=== PATIENT | female | born 1995 | race Caucasian/White ===

== ENCOUNTER 2025-05-26 23:59 | Emergency (ER) | payer SELFPAY ==
[~2025-05-26] VITALS: Ht 172.7 cm; Wt 72.6 kg
[2025-05-27 01:18] LABS: BASOPHILS % 0.4 % (0.0-1.0); EOSINOPHILS % 0.0 % (0.0-6.0); LYMPHOCYTES % 12.7 % (18.0-39.1); MONOCYTES % 2.7 % (4.4-11.3); NEUTROPHILS % 83.8 % (38.7-80.0); RED CELL DISTRIBUTION WIDTH 12.8 % (11.7-14.4)
[2025-05-27 01:31] LABS: EST GLOMERULAR FILTRATION RATE 91.0 ML/MIN (>=60)
[2025-05-27] MEDS: ONDANSETRON HCL INJ 2MG/ML 2ML 2 MG/ML VIAL IV STA (01:34)
[2025-05-27] MEDS: ACETAMINOPHEN 325 MG TAB PO ONE (01:34)
[2025-05-27] MEDS: SODIUM CHLORIDE 0.9% 1000ML 1,000 ML IV ONE (01:35)
[2025-05-27 01:56] LABS: CORONAVIRUS COVID-19 AG NEGATIVE (NEGATIVE); STREPTOCOCCUS GRP A ANTIGEN NEGATIVE (NEGATIVE)
[2025-05-27] MEDS ORDERED: IOPAMIDOL 370 MG/ML 100 ML INFUS..BTL INJ ONE (02:57)
[2025-05-27 03:27] LABS: LEUKOCYTE ESTERASE ,URINE NEGATIVE (NEGATIVE); PROTEIN,URINE DIPSTICK 1+ (NEGATIVE); URINE UROBILINOGEN 1 mg/dL (0.2 - 1)
[2025-05-27 04:02] LABS: EPITHELIAL CELLS,URINE MODERATE /LPF
[2025-05-27] MEDS ORDERED: MACROBID 100 M100 MG PO (04:13)
[2025-05-27 04:29] VITALS: PULSE 82; RESP 16; TEMP 97.7; O2SAT 97
[2025-05-27 04:46] LABS: LYMPHOCYTES % (MANUAL) 8 % (19-48); MONOCYTES % (MANUAL) 4 % (3.4-9.0); NEUTROPHILS % (MANUAL) 88 % (40-74)
[2025-05-27 04:47] LABS: PLATELET ESTIMATE ADEQUATE; PLATELET MORPHOLOGY COMMENT NORMAL; RBC MORPHOLOGY COMMENT NORMAL
== END 2025-05-27 04:30 | disposition home or self-care (01) ==
LOC: ER 05-27 00:55
DX: R11.2 Nausea with vomiting, unspecified (principal); A08.4 Viral intestinal infection, unspecified; N39.0 Urinary tract infection, site not specified; R10.30 Lower abdominal pain, unspecified; R53.1 Weakness; Z11.52 Encounter for screening for COVID-19
CPT/HCPCS: 36415; 71045; 74177; 80053; 81001; 83518; 83690; 84702; 85025; 87070; 87428; 99284; J2405; J2470; J7030; Q9967